=== PATIENT | male | born 1960 | race African-American/Black ===

== ENCOUNTER → 2017-09-15 | Outpatient (CLI) | payer BC ==
[~2017-09-15] MED LIST: CLONIDINE HCL0.3 MG PO; HUMALOG MI100 UNIT/1 SC; METOPROLOL SUCC50 M1 PO; NIFEDIPINE90 MG PO; PRAVASTATIN SOD10 MG PO
--- NOTE | ~2017-09-15 | EKG ---
[place], [place] ELECTROCARDIOGRAM REPORT NAME: AAYUSH WELCH UNIT #: [id number] ROOM: DOCTOR: AUGUSTIN MARTÍNEZ MD BIRTHDATE: [birth year] DOS: 09/15/2017 RATE AND RHYTHM: Normal sinus rhythm at 76 beats per minute. VA interval 187 milliseconds, QRS duration 74 milliseconds, corrected QT interval 404 milliseconds, QRS axis 28. IMPRESSION: 1. Normal sinus rhythm. 2. Nonspecific T-wave abnormalities noted in leads V5 and V6. 3. No old EKG to compare with. 4. This is abnormal EKG. AUGUSTIN MARTÍNEZ MD CM:EKGRPT:ELECTROCARDIOGRAM REPORT [id number] AUGUSTIN MARTÍNEZ MD
[2017-09-15 10:45] LABS: CREATININE 2.86 mg/dL (0.70-1.30)
== END | disposition home or self-care (01) ==
LOC: RESCLI 01:24
PROVIDERS: Internal Medicine
DX: Z01.818 Encounter for other preprocedural examination (principal); E11.610 Type 2 diabetes mellitus with diabetic neuropathic arthropathy; E78.5 Hyperlipidemia, unspecified; I10 Essential (primary) hypertension; Z79.4 Long term (current) use of insulin

== ENCOUNTER → 2017-10-19 | Outpatient (CLI) | payer BC ==
[~2017-10-19] MED LIST changes: +DOXYCYCLINE100 M3 PO; +ULTRAM50 MG PO; +VITAMIN D-32000 UNIT PO; +XARE15TA PO
== END | disposition home or self-care (01) ==
LOC: SDC 08:50 → LAB 08:50
DX: E11.610 Type 2 diabetes mellitus with diabetic neuropathic arthropathy (principal); S93.05XA Dislocation of left ankle joint, initial encounter; S93.315A Dislocation of tarsal joint of left foot, initial encounter; L89.523 Pressure ulcer of left ankle, stage 3; I70.203 Unspecified atherosclerosis of native arteries of extremities, bilateral legs; I47.1 Supraventricular tachycardia; X58.XXXA Exposure to other specified factors, initial encounter; Y93.89 Activity, other specified; Y92.89 Other specified places as the place of occurrence of the external cause; Y99.8 Other external cause status

== ENCOUNTER → 2017-10-26 | Outpatient (CLI) | payer BC | END | disposition home or self-care (01) | LOC: RESCLI 02:31 | DX: Z01.818 Encounter for other preprocedural examination (principal); I10 Essential (primary) hypertension; E11.610 Type 2 diabetes mellitus with diabetic neuropathic arthropathy; E78.5 Hyperlipidemia, unspecified; Z79.4 Long term (current) use of insulin ==

== ENCOUNTER → 2017-10-27 | Day surgery (SDC) | payer BC ==
[~2017-10-27] VITALS: Ht 185.4 cm; Wt 72.6 kg
--- NOTE | ~2017-10-27 | WRIGHTHP ---
[place], [place] PATIENT HISTORY AND PHYSICAL EXAM NAME: AAYUSH WELCH [facility] #: [id number] UNIT #: [id number] ROOM: DOCTOR: DEREK ENG DPM BIRTHDATE: [birth year] DOS: 10/27/2017 SURGEON: Dr. Derek Eng. SUMMER BABYSITTER: Nohemi Smith, PGY2 PREOPERATIVE DIAGNOSES: 1. Tarsal tunnel syndrome. 2. Ankle joint equinus. 3. Osteomyelitis of the fibula. 4. Infection of soft tissue. 5. Possible osteomyelitis of tibia. 6. Possible osteomyelitis of the calcaneus. 7. Fracture dislocation tibiotalar joint, fracture dislocation of subtalar joint and fracture dislocation of the tarsal joint. 8. Large complex wound measuring 3 cm diameter distal fibula. 9. Significant left lower extremity deformity. POSTOPERATIVE DIAGNOSES: 1. Tarsal tunnel syndrome. 2. Ankle joint equinus. 3. Osteomyelitis of the fibula. 4. Infection of soft tissue. 5. Possible osteomyelitis of tibia. 6. Possible osteomyelitis of the calcaneus. 7. Fracture dislocation tibiotalar joint, fracture dislocation of subtalar joint and fracture dislocation of the tarsal joint. 8. Large complex wound measuring 3 cm diameter distal fibula. 9. Significant left lower extremity deformity. PROCEDURES: 1. Tarsal tunnel decompression. 2. Achilles tendon lengthening. 3. Fibular osteotomy. 4. Debridement of the fibula. 5. Bony debridement of the tibia. 6. Right debridement of calcaneus. 7. Reduction of the tibiotalar joint ankle, reduction of the subtalar calcaneal subtalar joint and the mid tarsal joint, all left. 8. Complex closure with mobilization of tissue of the distal wound. 9. Application of a multilevel external fixator on the left lower extremity. PROCEDURE IN DETAIL: The patient was seen in preop holding, informed consent was performed. The patient was seen as well as his family member. Appropriate site marking was performed and the patient and family member concurred. He was brought into OR and placed on well-padded OR table where a generous was achieved. Prior to the preop, the patient had a popliteal block performed. Once anesthesia was achieved, he was placed on a well-padded OR table and general anesthesia achieved. A mid-thigh tourniquet was applied to his left lower extremity. The left foot and leg were prepped and draped in a sterile [place], [place] PATIENT HISTORY AND PHYSICAL EXAM [facility]: [id number] UNIT #: [id number] ROOM: DOCTOR: DEREK ENG DPM BIRTHDATE: [birth year] fashion. At this point in time, appropriate timeout was performed with operating room concurred. PROCEDURE #1. TARSAL TUNNEL DECOMPRESSION: After a tourniquet was inflated, attention was directed to medial aspect of the left tarsal tunnel. At this point in time, the incision was made over the tarsal tunnel. It was deepened in same plane using sharp scissors, avoid neurovascular structures, carried deep down to the ____ ligament where the tarsal tunnel was identified and noted to be severely entrapped. From the severe fibrosis and scar tissue down to the neurovascular structures along the medial calcaneus in the navicular, in the talus, which were significantly medially displaced and tracked. Once all soft tissues were free, neurovascular bundles were freed, the area was irrigated with copious amounts of saline and at this time, the deep tissue was closed using 0 Vicryl and skin was closed using 2-0 nylon. PROCEDURE #2: ACHILLES TENDON LENGTHENING: Next, entering posterior aspect of the right lower leg at this point in time, has severe equinus contracture was noted as well as Achilles tendon. At this time, using a 15 blade, a complete resection of the Achilles tendon was performed off the calcaneus through stab incision, releasing the calcaneus, increasing the Achilles tendon allowing the foot to come out of equinus and slightly released out of varus deformity. The area was flushed with copious amounts of saline and skin was closed with 2-0 nylon. PROCEDURE #3: At this time, there was improvement of immobilization, however is in a fixed position due to significant deformity of the medial displacement of the osseous structures. Attention was directed to the lateral aspect of fibula where approximately 6-cm incision was made. An oblique incision was made around the ulceration, which measured approximately 3 cm in diameter. This was carried down to bone and at this time, the distal aspect of fibula was performed. At this point in time, approximately 3-cm portion of the fibula was identified and an osteotomy was made of the fibula. PROCEDURE #4: BONY DEBRIDEMENT OF THE FIBULA. Next, with the distal fibula exposed, there was necrotic bone identified and a rongeur was used and a rongeur took down the bone, excised the bone and resected it and bone was sent for pathology. Bone was sent for Gram stain, aerobic, anaerobic, fungal, acid fast, cultures and Gram stain of the left distal fibula. At this point in time, with fibular osteotomy already performed, the distal portion of the fibula was resected. At this point in time, the area was flushed with copious amounts of sterile saline. Now with the diseased portion of the fibula gone, another bone debridement was performed at the fibula, but was determined to be post-debridement and cleaned bone and bone from the fibula was then debrided again and sent for Gram stain, aerobic, anaerobic, fungal, acid fast as well as cultures and biopsies of the distal fibula. At this point in time, attempted reduction was performed, although the foot mobilized more laterally compared to preoperatively and at this time, still cannot be completely reduced. So at this time, attention was directed to the medial aspect of the foot where a medial incision was made. This was made over the talus, which was displaced medial to the tibia and medial to the navicular. The incision was carried deep down to [place], [place] PATIENT HISTORY AND PHYSICAL EXAM NAME: AAYUSH WELCH UNIT #: [id number] ROOM: DOCTOR: DEREK ENG DPM BIRTHDATE: [birth year] the bone and at this time, this is being released by fibrotic tissue, posterior tibial tendon, flexor tendon and neurovascular structures were identified. At this time, bone was resected from the talus. At this point in time, bone was sent for Gram stain, aerobic, anaerobic, fungal, acid fast as well as a biopsy and also Gram stain. After significant amount of bone reduced, again more mobilization occurred, but this could not be completely mobilized. More bone resected and after irrigation, clean margins of talus bone then were resected using a rongeur and again aerobic, anaerobic, fungal, acid fast and cultures and biopsies were again sent off for clean bone resection off of the talus. No gross deformity bone noted. Necrosis of bone noted. The area was flushed with copious amounts of saline, deep tissues with 0 Vicryl, skin with 2-0 nylon. Next, attention was directed to the plantar aspect of the tibia and bone was resected using osteotomes, mallets, curettes and rongeurs and bone was sent for Gram stain, aerobic, anaerobic, fungal, acid fast of distal tibia and a Gram stain and biopsy. Once this was done, the area was flushed with copious amounts of sterile saline. Then, a new sample of bone was deemed clean, post-debridement of tibia was sent for Gram stain, aerobic, anaerobic, fungal, acid fast as well as cultures and biopsies of the tibia as well for clean margins. PROCEDURE #5: Bone was debrided from the calcaneus. Rongeur was used and bone was sent for Gram stain, aerobic, anaerobic, fungal and acid fast of the lateral aspect of the calcaneus and sent for biopsy to rule out any type of osteomyelitis or infection of the lateral aspect of the calcaneus. Once this bone was resected and these cultures and biopsies were done, now we were able to reduce the tibiotalar joint, the talar calcaneal metatarsal joint and get the ____ the leg. This reduction was temporarily held in place and the deep tissues were closed using 0 Vicryl. The skin was closed using 2-0 nylon. The flaps of the anterior and posterior wounds were undermined prior to closure. PROCEDURE #6: COMPLEX CLOSURE OF THE WOUND WITH THE TISSUE BEING MOBILIZED ANTERIORLY AND POSTERIORLY. The excision of the ____ wound was excised and removed in total previously. There sutures were mobilized and a large dog ear had to be taken out due to excessive tissue from shortening of the area. These tissues were mobilized to the neutral position and these were closed primarily with complex closure using 0 Vicryl and 2-0 nylon. PROCEDURE #7: APPLICATION OF A MULTILEVEL EXTERNAL FIXATOR WITH THE FOOT IN THE NEUTRAL POSITION AND GOOD ANATOMIC ALIGNMENT. Two half pins were placed in the tibia done under fluoroscopy, 2 half pins were placed in the calcaneus from posterior to anterior and 2 half pins were placed in the mid foot, one from the medial cuneiform the lateral tarsals and from the cuboid to the medial tarsals. At this point in time, with the foot and ankle and subtalar joint, midtarsal joint held in neutral position. The multilevel external fixator was connected to a port clamp type technique reducing in the holding anatomic alignment out of equinus in the sagittal and frontal plane as well as transverse plane into neutral position. The tourniquet was dropped at this point in time prior to 2 hours. Good cap refill time was noted to return to the ends of all digits. Also, we used to close suction drain in lateral aspect of the wound, which was inserted prior to closure. Good cap refill time was noted to all digits of the [place], [place] PATIENT HISTORY AND PHYSICAL EXAM NAME: AAYUSH EWLCH UNIT #: [id number] ROOM: DOCTOR: DEREK ENG DPM BIRTHDATE: [birth year] left foot. At this time, Betadine-soaked Adaptic, 4 x 4, Salima ____ was applied. The tourniquet was removed. The patient tolerated the procedure and ____ intact. His foot and ankle and lower extremity were in much improved anatomic alignment without stress on the tissues as this wound was closed primarily DEREK ENG DPM CM:HISPHYS:PATIENT HISTORY AND PHYSICAL EXAMINATION [id number] DEREK ENG DPM 10/28/17 1348 DAPHNIE HENSLEY MIS.R
--- NOTE | ~2017-10-27 | WRIGHTHP ---
[place], [place] PATIENT HISTORY AND PHYSICAL EXAM NAME: AAYUSH WELCH UNIT #: [id number] ROOM: DOCTOR: DEREK ENG DPM BIRTHDATE: [birth year] DOS: 10/27/2017 LOWER EXTREMITY PHYSICAL EXAMINATION VASCULAR: He has palpable pedal pulse, 2/4 DP and PT bilaterally with good cap refill time. NEUROLOGICAL: He has complete loss of protective sensation secondary to diabetic peripheral neuropathy. Tinel sign consistent with a tarsal tunnel syndrome. MUSCULOSKELETAL: He has a fixed semirigid contracture nearly like a club foot, cannot alan the foot to a neutral position or even close to neutral position. There is instability at the mid-tarsal joint. He has a significant equinus component and a very tight nearly displaced Achilles tendon on the right. DERMATOLOGICAL: He has open wound distal fibula approximately 3 cm in diameter which has white scarring tissue and proud flesh also identified some necrotic tissue. No gross cardinal signs of infection, but has been on IV antibiotics for 6 weeks. ORTHOPEDIC: Fracture dislocation of the tibiotalar joint, subtalar joint, midtarsal joint, significant varus deformity, club foot deformity, joint contracture of the tibiotalar calcaneal in the sagittal plane and medially and history of chronic osteomyelitis, distal lateral fibula. DEREK ENG DPM CM:HISPHYS:PATIENT HISTORY AND PHYSICAL EXAMINATION [id number] DEREK ENG DPM 11/05/17 1237 interface
--- NOTE | ~2017-10-27 | WRIGHTHP ---
[place], [place] PATIENT HISTORY AND PHYSICAL EXAM NAME: AAYUSH WELCH UNIT #: [id number] ROOM: DOCTOR: DEREK ENG DPM BIRTHDATE: [birth year] DOS: 10/27/2017 INDICATION NOTE: The patient is a long-standing diabetic who is referred to me from outside physician for gross deformity of his left lower extremity. He presents with a varus deformity that is semirigid on his left and his foot is dislocated medially to the long axis of the tibia and in an inverted position likely diabetic peripheral neuropathy. With this, he has had a large ulcer on the distal fibula as that is the weightbearing area that measures approximately 3 cm in diameter. He has been diagnosed of osteomyelitis and had a course of IV antibiotics from an ID doctor from [facility]. Recently came off antibiotics. He exhibits no current signs of infection, drain, malodor, undermining or tunneling of the wound. There is no acute exacerbation of infection, but his imaging does suggest consistent with chronic osteomyelitis and also he has an open wound of his left distal fibula area. With this in mind, he was set up for surgery today on 10/27/2017 at the [facility] for incision and drainage, bone debridement, reduction of deformity, Achilles tendon lengthening and application of multilevel external fixator. Additionally, need for a tarsal tunnel decompression to prevent strangulation of the neurovascular bundles on the medial aspect of his foot and ankle secondary to longstanding gross deformity. He understood the consent. He understands the risk of limb loss, wounds, continued infection, worsening of it, neurovascular injury, DVT and PE. He understands all these risks and signed consent in our office, signed the consent today. He agreed with appropriate site marking, he agreed with the perioperative management and perioperative course, he is to be nonweightbearing, DVT prophylactics, antibiotics as well as possible wound care as needed. DEREK ENG DPM CM:HISPHYS:PATIENT HISTORY AND PHYSICAL EXAMINATION [id number] DEREK ENG DPM 11/05/17 1233 interface
[2017-10-27 10:04] VITALS: BP 195/100
[2017-10-27 13:18] VITALS: BP 171/90
[2017-10-27 13:33] VITALS: BP 171/92
[2017-10-27 13:48] VITALS: BP 153/81
[2017-10-27 14:03] VITALS: BP 152/81
[2017-10-27 14:18] VITALS: BP 160/85
[2017-12-23 10:08] LABS: ORGANISM ID, MOLD Final report (.); RESULT 1 Final Identification (.)
[2017-12-24 08:15] LABS: RESULT 1 Final Identification
== END | disposition home or self-care (01) ==
LOC: SDC 09-15 11:00
PROVIDERS: Podiatrist
DX: M86.162 Other acute osteomyelitis, left tibia and fibula (principal); S93.05XA Dislocation of left ankle joint, initial encounter; S93.315A Dislocation of tarsal joint of left foot, initial encounter; M21.6X2 Other acquired deformities of left foot; M86.672 Other chronic osteomyelitis, left ankle and foot; M86.172 Other acute osteomyelitis, left ankle and foot; M79.89 Other specified soft tissue disorders; G57.52 Tarsal tunnel syndrome, left lower limb; I10 Essential (primary) hypertension; E78.5 Hyperlipidemia, unspecified; E11.610 Type 2 diabetes mellitus with diabetic neuropathic arthropathy; Z98.890 Other specified postprocedural states; Z79.899 Other long term (current) drug therapy; Z79.4 Long term (current) use of insulin; X58.XXXA Exposure to other specified factors, initial encounter; Y93.89 Activity, other specified; Y92.89 Other specified places as the place of occurrence of the external cause; Y99.8 Other external cause status; Z53.31 Laparoscopic surgical procedure converted to open procedure

== ENCOUNTER 2018-02-16 04:33 | Inpatient (IN) | payer BC ==
[2018-02-08 09:45] VITALS: BP 132/78
[~2018-02-16] VITALS: Ht 185.4 cm; Wt 72.6 kg
[2018-02-16] VITALS (12 sets, daily range): BP systolic 114–202; BP diastolic 55–110
--- NOTE | ~2018-02-16 | O ---
[place], [place] OPERATIVE NOTE [id number] UN[facility] #: [id number] ROOM: 522 DOCTOR: DEREK ENG DPM BIRTHDATE: [birth year] DOS: 02/16/2018 OPERATIVE REPORT SURGEON: Derek Eng DPM ASSISTANTS: 1. Dr. Lawrence Cassidy. 2. Dr. Chris Ray. PREOPERATIVE DIAGNOSES: 1. Osteomyelitis, left calcaneus. 2. 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 3. Charcot arthropathy of the left. POSTOPERATIVE DIAGNOSES: 1. Osteomyelitis, left calcaneus. 2. 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 3. Charcot arthropathy of the left. PROCEDURES: 1. Bone debridement and bone biopsy performed of the left calcaneus for the osteomyelitis. 2. Tibiotalar fusion. 3. Subtalar joint fusion. 4. Harvesting of large fibular graft, approximately 12 cm in length. PROCEDURE #1: INCISION AND DRAINAGE AND BONE BIOPSY AND BONE DEBRIDEMENT OF LEFT CALCANEUS. The patient was seen in the preoperative holding area and appropriate site marking was performed. He and his family concurred. He agreed, understanding pros, cons, risks, benefits. He also needs a site marker. He was brought in the OR and placed on well-padded OR table where anesthesia was achieved. Once his anesthesia was achieved, he was flipped to a prone position. His left foot and leg were prepped and draped in sterile fashion. Hemostasis was accomplished via mid thigh tourniquet. At this time, attention was directed to the posterior aspect of his left lower leg where an incision was made. The incision was deepened in the same plane using sharp and blunt dissection, avoiding neurovascular structures, carried down to the deep tissue. At this point in time, the calcaneus was very suspicious for osteomyelitis and this was debrided extensively with rongeurs, osteotomes, mallets and curettes and this bone was sent off for Gram stain, aerobic, anaerobic, fungal acid fast as well as a biopsy of left calcaneus. PROCEDURE #2: TIBIOTALAR FUSION. Attention was directed to the tibiotalar calcaneal joint. This bone was extensively debrided removing the distal portion of the tibia. This bone was resected and this was prepared for fusion with rongeurs, osteotomes, mallets, [place], [place] OPERATIVE NOTE NAME: AAYUSH WELCH UNIT #: [id number] ROOM: 522 DOCTOR: DEREK ENG DPM BIRTHDATE: [birth year] curettes, and drills preparing the tibia and then also curettes, osteotomes, mallets, rongeurs were used to prepare the calcaneus for fusion as well. Next, attention was directed to the lateral aspect of the wound approximately 10 cm up proximal. PROCEDURE #3: HARVESTING OF LOWER EXTREMITY GRAFT. At this time, all the soft tissues were taken off the fibula and the distal aspect of the fibula and this bone was harvested for large fibular graft approximately 10 cm. The patient was taken on the back table and this was measured to prepare for tibiotalar calcaneal fusion measuring for cortical struts with the anterior portion of the bone debrided with drills, osteotomes, mallets, rongeurs. PROCEDURE #4: Talocalcaneal joint, allogenic bone chips as well as patient's autologous bone crunched up very well, was packed very, very tightly into the tibia and calcaneus preparing for fusion. This bone was packed very, very firmly, tightly and at this time the cortical cancellous struts were inserted posteriorly creating a subtalar joint fusion as well. Next, two 7.0 fully threaded 100 mm in length white, medical screws were inserted from the inferior calcaneus to the distal aspect of the tibia to catch purchase fully threaded. Next, with more bone graft packed in there, autogenous bone graft as well as some allogenic bone grafts were packed very tightly. A posterior plate was applied. Combination of locking and nonlocking screws were applied posteriorly. At 2 hours, the tourniquet was dropped and the foot and ankle was noted to be in good anatomic position via x-ray and clinical evaluation. At this point in time, hemostasis was well maintained and a large drain was inserted into the area of the lateral aspect of the tibiotalar area. Deep tissues were closed using 0 and 1 Vicryl and 2-0 nylon. Surgical wounds were dressed with Betadine-soaked Adaptic, 4 x 4s, Salima in a sterile compressive fashion. The tourniquet had been released. Compressive bandages were applied. He tolerated the procedure and anesthesia well, left the OR with vital signs stable and vascular status intact. [place], [place] OPERATIVE NOTE NAME: AAYUSH WELCH UNIT #: [id number] ROOM: 2 DOCTOR: DEREK ENG DPM BIRTHDATE: [birth year] DEREK ENG DPM CM:OPRECORD:OPERATIVE NOTE 1338 [id number] DEREK ENG DPM 04/06/18 0802 interface
--- NOTE | ~2018-02-16 | EKG ---
[place], [place] ELECTROCARDIOGRAM REPORT NAME: AAYUSH WELCH UNIT #: [id number] ROOM: 516 DOCTOR: DAISY DRAFT REPORT BIRTHDATE: [birth year] [facility] Test Date: 2018-02-17 Test Time: 22:04:29 Pat Name: AAYUSH WELCH Department: Room: 51 1 Gender: M Cottage Attendant: SS RESP : 1960 Requested By: STANLEY RYAN Order Number: [id number] Reading MD: Wilfred Craven MD Measurements Intervals [place] Rate: 88 P: 60 VA: 167 QRS: -16 QRSD: 90 T: 88 QT: 361 QTc: 437 Interpretive Statements Sinus rhythm Borderline left axis deviation Low voltage, extremity leads RSR' in V1 or V2, probably normal variant Nonspecific T abnormalities, lateral leads Baseline wander in lead(s) I,II,aVR,aVF Compared to ECG 02/08/2018 10:42:03 RSR' in V1 or V2 now present T-wave abnormality now present Electronically Signed On 02-21-2018 13:55:50 PDT by Wilfred Craven MD CM:EKGRPT:ELECTROCARDIOGRAM REPORT [id number] STANLEY GANDHI DRAFT REPORT STANLEY RYAN DO
--- NOTE | ~2018-02-16 | WRIGHTHP ---
[place], [place] PATIENT HISTORY AND PHYSICAL EXAM NAME: AAYUSH WELCH UNIT #: [id number] ROOM: 516 DOCTOR: DEREK ENG DPM BIRTHDATE: [birth year] DOS: 02/16/2018 LOWER EXTREMITY PHYSICAL EXAMINATION: VASCULAR: He has had noninvasive studies, which demonstrated good adequate perfusion of his left lower extremity. NEUROLOGICAL: He has decreased epicritic sensation secondary to diabetic peripheral neuropathy. MUSCULOSKELETAL: He has a grossly unstable left ankle. ORTHOPEDIC EXAM: On left, consistent with long-term osteomyelitis of his left foot and ankle and lower leg with significant deformity. DEREK ENG DPM CM:HISPHYS:PATIENT HISTORY AND PHYSICAL EXAMINATION 1338 1511 DEREK ENG DPM 02/16/18 1600 interface
--- NOTE | ~2018-02-16 | PR ---
[place], [place] PROGRESS NOTE NAME: AAYUSH WELCH UNIT #: [id number] ROOM: 522 DOCTOR: JYOTSNA DAVISAUGUST BIRTHDATE: [birth year] DOS: 02/27/2018 SUBJECTIVE: The patient is a pleasant 57-year-old -[place] male who is being followed for a left foot osteomyelitis. Pathology showed chronic osteo. His cultures have grown Pseudomonas. He remains on Merrem IV. He is status post a fusion. He is tolerating the antibiotics. Denies fevers, chills, nausea, vomiting or diarrhea. No rash or itch. No cough or shortness of breath. No fevers or shaking chills. Further review of systems is unremarkable. LABORATORY DATA: From yesterday showed WBCs s 8.6, platelets 255, BUN 26, creatinine 1.37. OBJECTIVE: VITAL SIGNS: Temperature 98.2, pulse 80, respirations 18, BP 154/86. GENERAL: A 57-year-old -[place] male in no acute distress. HEENT: Normocephalic, no thrush. LUNGS: Clear to auscultation bilaterally. Respirations even and unlabored. HEART: Regular rhythm. No murmur appreciated. ABDOMEN: Soft, nondistended. EXTREMITIES: No edema. Left lower extremity casted. SKIN: Warm, dry, free of rashes, midline dressed. ASSESSMENT: Left foot chronic osteomyelitis. He is status post a fusion, cultures with pseudomonas. PLAN: To continue the Merrem until 03/17/2018. KAT GOYAL CNP Marci Victor MD CM:PNJCARLOS 1523 1535 KAT JYOTSNA DAVIS 02/27/18 1718 interface
--- NOTE | ~2018-02-16 | PR ---
[place], [place] PROGRESS NOTE NAME: AAYUSH WELCH UNIT #: [id number] ROOM: 522 DOCTOR: SISI HARRISON,CONSTANZA BIRTHDATE: [birth year] DOS: 02/27/2018 This is attestation to the progress note made by nurse practitioner, Jia Moreno. I agree with the assessment and plan. I reviewed the labs and imaging and made the necessary changes in the note. Marci Laird MD CM:PNTRANS 17 30 CONSTANZA LAIRD MD 03/06/182130 interface
--- NOTE | ~2018-02-16 | WRIGHTHP ---
[place], [place] PATIENT HISTORY AND PHYSICAL EXAM [id number] UNIT #: [id number] ROOM: 516 DOCTOR: DEREK ENG DPM BIRTHDATE: [birth year] DOS: 02/16/2018 INDICATIONS: The patient is a 57-year-old -[place] male who is seen for chronic osteomyelitis of his left ankle. He had a deformity. He has had debridement and external fixator applied. At this time, he has consented for surgery for a tibiotalar and calcaneal fusion and harvesting of the lower extremity graft. He is aware of the pros, cons, risks and benefits. He was noted to have high risk for amputation. He understands that he has significant deformity. He understands his problem is very complex in nature. He agreed to surgery and agreed with perioperative management including anticoagulation therapy. He understands the pros, cons, risks, benefits of that. With this in mind, he has consented for surgery and await for TTC fusion of his left lower extremity harvesting of the graft. Appropriate site marking was performed and he concurred as well as his family on the left lower extremity. DEREK ENG DPM CM:HISPHYS:PATIENT HISTORY AND PHYSICAL EXAMINATION 1338 1509 DEREK ENG DPM 02/16/18 1558 interface
[~2018-02-16 04:33] MED LIST changes: +AMOX CLAV PO; +FLUONAZOLE200 M1 PO; +XARELTO10 MG PO
[2018-02-16 07:34] LABS: BASO # 0.1 10*3/uL (0.0-0.1); BASO % 0.7 % (0.0-1.0); EOS # 0.1 10*3/uL (0.0-0.4); EOS % 1.7 % (1.0-4.0); HEMATOCRIT 29.3 % (42.0-52.0); HEMOGLOBIN 9.7 g/dl (14.0-18.0); LYMPH # 1.7 10*3/uL (1.3-4.4); LYMPH % 24.2 % (27.0-41.0); MEAN CELL VOLUME 98.7 fl (80.0-94.0); MEAN CORPUSCULAR HGB 32.7 pg (27.0-31.0); MEAN CORPUSCULAR HGB CONC 33.1 g/dl (33.0-37.0); MEAN PLATELET VOLUME 10.8 fl (9.6-12.3); MONO # 0.6 10*3/uL (0.1-1.0); MONO % 8.6 % (3.0-9.0); NEUT # 4.5 10*3/uL (2.3-7.9); NEUT % 64.5 % (47.0-73.0); PLATELET COUNT AUTOMATED 180 10*3/uL (130-400); RED BLOOD COUNT 2.97 10*6/uL (4.50-5.90); RED CELL DISTRI WIDTH 14.6 % (0-14.5)
[2018-02-16 07:42] LABS: ACT PARTIAL THROMBO TIME 24.8 SECONDS (20.8-31.5); INTERNATIONAL NORM RATIO 1.1 (2.0-3.5)
[2018-02-16 18:00] LABS: ALBUMIN 2.8 gm/dl (3.1-4.5); CREATININE 1.93 mg/dL (0.70-1.30); POTASSIUM 4.5 mmol/L (3.5-5.1); TOTAL PROTEIN 6.7 gm/dL (6.4-8.2)
[2018-02-17] VITALS (15 sets, daily range): BP systolic 101–148; BP diastolic 55–71
[2018-02-17 07:00] LABS: BASO % 0.2 % (0.0-1.0); EOS % 0.1 % (1.0-4.0); LYMPH # 1.2 10*3/uL (1.3-4.4); LYMPH % 9.6 % (27.0-41.0); MEAN CORPUSCULAR HGB 32.9 pg (27.0-31.0); MEAN CORPUSCULAR HGB CONC 32.9 g/dl (33.0-37.0); MONO # 1.4 10*3/uL (0.1-1.0); MONO % 10.6 % (3.0-9.0); NEUT # 10.2 10*3/uL (2.3-7.9); RED BLOOD COUNT 1.61 10*6/uL (4.50-5.90); RED CELL DISTRI WIDTH 14.8 % (0-14.5); WHITE BLOOD COUNT 12.9 10*3/uL (4.8-10.8)
[2018-02-17 07:03] LABS: ACT PARTIAL THROMBO TIME 28.3 SECONDS (20.8-31.5); INTERNATIONAL NORM RATIO 1.2 (2.0-3.5)
[2018-02-17 07:09] LABS: ALBUMIN 2.2 gm/dl (3.1-4.5); CREATININE 2.01 mg/dL (0.70-1.30); FREE T4 0.78 ng/dl (0.76-1.46); PHOSPHOROUS 3.2 mg/dL (2.5-4.9); POTASSIUM 4.5 mmol/L (3.5-5.1); TOTAL PROTEIN 5.8 gm/dL (6.4-8.2)
[2018-02-17 07:14] LABS: THYROID STIM HORMONE (HS) 0.845 uIU/ml (0.358-4.75)
[2018-02-17 07:22] LABS: HEMOGLOBIN 5.3 g/dl (14.0-18.0)
[2018-02-17 07:23] LABS: HEMATOCRIT 16.1 % (42.0-52.0); PLATELET COUNT AUTOMATED 115 10*3/uL (130-400)
[2018-02-17 08:05] LABS: VITAMIN D, 25-HYDROXY 33.8 ng/mL (30-100)
[2018-02-17 14:06] LABS: ACID FAST SPEC PROCESSING Tissue Grinding (.)
[2018-02-17 15:38] LABS: HEMATOCRIT 18.5 % (42.0-52.0); HEMOGLOBIN 6.1 g/dl (14.0-18.0); MEAN CELL VOLUME 98.4 fl (80.0-94.0); MEAN CORPUSCULAR HGB 32.4 pg (27.0-31.0); MEAN PLATELET VOLUME 11.1 fl (9.6-12.3); PLATELET COUNT AUTOMATED 103 10*3/uL (130-400); RED BLOOD COUNT 1.88 10*6/uL (4.50-5.90); RED CELL DISTRI WIDTH 16.5 % (0-14.5); WHITE BLOOD COUNT 13.5 10*3/uL (4.8-10.8)
[2018-02-17 15:58] LABS: BASOPHILS 1 % (0-1); PLATELET SUFFICIENCY LOW (NORMAL); ROULEAUX SLIGHT; TOTAL CELLS COUNTED 100 #CELLS
[2018-02-17 23:13] LABS: URINE BLOOD,POST TRANSFUSION 3+ (NEGATIVE)
[2018-02-17 23:14] LABS: URINE RBC,POST TRANSFUSION 41-50 rbc/hpf (0-2)
[2018-02-18] VITALS (10 sets, daily range): BP systolic 109–136; BP diastolic 60–72
[2018-02-18 04:18] LABS: CREATININE 1.97 mg/dL (0.70-1.30); POTASSIUM 4.1 mmol/L (3.5-5.1)
[2018-02-18 08:55] LABS: MEAN CELL VOLUME 98.8 fl (80.0-94.0); MEAN CORPUSCULAR HGB 32.7 pg (27.0-31.0); MEAN CORPUSCULAR HGB CONC 33.1 g/dl (33.0-37.0); MEAN PLATELET VOLUME 10.8 fl (9.6-12.3); PLATELET COUNT AUTOMATED 90 10*3/uL (130-400); RED BLOOD COUNT 1.71 10*6/uL (4.50-5.90); RED CELL DISTRI WIDTH 17.3 % (0-14.5); WHITE BLOOD COUNT 11.6 10*3/uL (4.8-10.8)
[2018-02-18 09:04] LABS: HEMATOCRIT 16.9 % (42.0-52.0); HEMOGLOBIN 5.6 g/dl (14.0-18.0)
[2018-02-18 09:11] LABS: CREATININE 1.91 mg/dL (0.70-1.30); POTASSIUM 3.9 mmol/L (3.5-5.1)
[2018-02-18 09:25] LABS: PLATELET SUFFICIENCY LOW (NORMAL); POLYCHROMASIA SLIGHT; TOTAL CELLS COUNTED 100 #CELLS
[2018-02-18 18:10] LABS: BASO % 0.3 % (0.0-1.0); EOS # 0.1 10*3/uL (0.0-0.4); HEMATOCRIT 22.1 % (42.0-52.0); HEMOGLOBIN 7.2 g/dl (14.0-18.0); LYMPH # 1.3 10*3/uL (1.3-4.4); LYMPH % 10.1 % (27.0-41.0); MEAN CELL VOLUME 96.5 fl (80.0-94.0); MEAN CORPUSCULAR HGB 31.4 pg (27.0-31.0); MEAN CORPUSCULAR HGB CONC 32.6 g/dl (33.0-37.0); MEAN PLATELET VOLUME 11.8 fl (9.6-12.3); NEUT # 10.3 10*3/uL (2.3-7.9); PLATELET COUNT AUTOMATED 98 10*3/uL (130-400); RED BLOOD COUNT 2.29 10*6/uL (4.50-5.90); RED CELL DISTRI WIDTH 17.6 % (0-14.5); WHITE BLOOD COUNT 12.9 10*3/uL (4.8-10.8)
[2018-02-19] VITALS (11 sets, daily range): BP systolic 112–150; BP diastolic 59–80
[2018-02-19 06:36] LABS: BASO % 0.2 % (0.0-1.0); EOS # 0.1 10*3/uL (0.0-0.4); EOS % 1.2 % (1.0-4.0); HEMATOCRIT 19.7 % (42.0-52.0); HEMOGLOBIN 6.4 g/dl (14.0-18.0); LYMPH # 1.2 10*3/uL (1.3-4.4); LYMPH % 10.9 % (27.0-41.0); MEAN CELL VOLUME 96.6 fl (80.0-94.0); MEAN CORPUSCULAR HGB 31.4 pg (27.0-31.0); MEAN CORPUSCULAR HGB CONC 32.5 g/dl (33.0-37.0); MEAN PLATELET VOLUME 12.4 fl (9.6-12.3); NEUT # 8.3 10*3/uL (2.3-7.9); NEUT % 78.1 % (47.0-73.0); PLATELET COUNT AUTOMATED 91 10*3/uL (130-400); RED BLOOD COUNT 2.04 10*6/uL (4.50-5.90); RED CELL DISTRI WIDTH 17.4 % (0-14.5); WHITE BLOOD COUNT 10.6 10*3/uL (4.8-10.8)
[2018-02-19 06:49] LABS: CREATININE 1.82 mg/dL (0.70-1.30); POTASSIUM 3.9 mmol/L (3.5-5.1)
[2018-02-19 07:07] LABS: ACID FAST SPEC PROCESSING Direct Inoculation (.)
[2018-02-19 07:07] LABS: ACID FAST SPEC PROCESSING Tissue Grinding (.)
[2018-02-20] VITALS: BP 110/64
[2018-02-20 04:00] VITALS: BP 160/86
[2018-02-20 07:08] LABS: BASO % 0.4 % (0.0-1.0); EOS # 0.2 10*3/uL (0.0-0.4); HEMATOCRIT 23.8 % (42.0-52.0); HEMOGLOBIN 7.9 g/dl (14.0-18.0); LYMPH # 1.3 10*3/uL (1.3-4.4); LYMPH % 15.1 % (27.0-41.0); MEAN CELL VOLUME 94.8 fl (80.0-94.0); MEAN CORPUSCULAR HGB 31.5 pg (27.0-31.0); MEAN CORPUSCULAR HGB CONC 33.2 g/dl (33.0-37.0); MEAN PLATELET VOLUME 12.1 fl (9.6-12.3); MONO # 0.6 10*3/uL (0.1-1.0); MONO % 7.1 % (3.0-9.0); NEUT # 6.4 10*3/uL (2.3-7.9); NEUT % 74.7 % (47.0-73.0); RED BLOOD COUNT 2.51 10*6/uL (4.50-5.90); WHITE BLOOD COUNT 8.5 10*3/uL (4.8-10.8)
[2018-02-20 07:12] LABS: PLATELET COUNT AUTOMATED 128 10*3/uL (130-400)
[2018-02-20 07:31] LABS: BUN 23 mg/dl (7-24); CHLORIDE 116 mmol/L (98-107); POTASSIUM 4.2 mmol/L (3.5-5.1); SODIUM 145 mmol/L (136-145)
[2018-02-20 07:33] LABS: CREATININE 1.46 mg/dL (0.70-1.30)
[2018-02-20 08:00] VITALS: BP 140/80
[2018-02-20 12:00] VITALS: BP 151/83
[2018-02-20 16:00] VITALS: BP 124/70
[2018-02-20 20:00] VITALS: BP 112/65
[2018-02-21] VITALS: BP 117/58
[2018-02-21 06:28] LABS: BASO % 0.4 % (0.0-1.0); EOS # 0.1 10*3/uL (0.0-0.4); EOS % 1.6 % (1.0-4.0); HEMATOCRIT 24.2 % (42.0-52.0); HEMOGLOBIN 7.9 g/dl (14.0-18.0); LYMPH # 1.2 10*3/uL (1.3-4.4); LYMPH % 16.6 % (27.0-41.0); MEAN CELL VOLUME 95.3 fl (80.0-94.0); MEAN CORPUSCULAR HGB 31.1 pg (27.0-31.0); MEAN CORPUSCULAR HGB CONC 32.6 g/dl (33.0-37.0); MEAN PLATELET VOLUME 11.4 fl (9.6-12.3); MONO # 0.6 10*3/uL (0.1-1.0); MONO % 7.8 % (3.0-9.0); NEUT # 5.5 10*3/uL (2.3-7.9); NEUT % 73.1 % (47.0-73.0); PLATELET COUNT AUTOMATED 141 10*3/uL (130-400); RED BLOOD COUNT 2.54 10*6/uL (4.50-5.90); RED CELL DISTRI WIDTH 16.4 % (0-14.5); WHITE BLOOD COUNT 7.5 10*3/uL (4.8-10.8)
[2018-02-21 06:34] LABS: BUN 21 mg/dl (7-24); CHLORIDE 115 mmol/L (98-107); CREATININE 1.38 mg/dL (0.70-1.30); POTASSIUM 4.5 mmol/L (3.5-5.1); SODIUM 145 mmol/L (136-145)
[2018-02-21 09:38] VITALS: BP 138/80
[2018-02-21 12:00] VITALS: BP 147/72
[2018-02-21 16:00] VITALS: BP 143/77
[2018-02-21 20:00] VITALS: BP 146/88
[2018-02-22] VITALS: BP 150/82
[2018-02-22 06:27] LABS: BUN 20 mg/dl (7-24); CHLORIDE 109 mmol/L (98-107); CREATININE 1.33 mg/dL (0.70-1.30); POTASSIUM 4.6 mmol/L (3.5-5.1); SODIUM 139 mmol/L (136-145)
[2018-02-22 06:32] LABS: BASO % 0.3 % (0.0-1.0); EOS # 0.1 10*3/uL (0.0-0.4); EOS % 1.7 % (1.0-4.0); HEMATOCRIT 25.4 % (42.0-52.0); HEMOGLOBIN 8.5 g/dl (14.0-18.0); LYMPH # 1.3 10*3/uL (1.3-4.4); MEAN CELL VOLUME 94.4 fl (80.0-94.0); MEAN CORPUSCULAR HGB 31.6 pg (27.0-31.0); MEAN CORPUSCULAR HGB CONC 33.5 g/dl (33.0-37.0); MEAN PLATELET VOLUME 11.9 fl (9.6-12.3); MONO # 0.6 10*3/uL (0.1-1.0); MONO % 7.3 % (3.0-9.0); NEUT # 5.8 10*3/uL (2.3-7.9); NEUT % 74.2 % (47.0-73.0); PLATELET COUNT AUTOMATED 169 10*3/uL (130-400); RED BLOOD COUNT 2.69 10*6/uL (4.50-5.90); RED CELL DISTRI WIDTH 15.8 % (0-14.5); WHITE BLOOD COUNT 7.8 10*3/uL (4.8-10.8)
[2018-02-22 08:00] VITALS: BP 152/78
[2018-02-22 12:00] VITALS: BP 163/91
[2018-02-22] MEDS ORDERED: MERREM IV1 GM IV (13:30)
[2018-02-22 16:00] VITALS: BP 138/82
[2018-02-22 20:00] VITALS: BP 143/75
[2018-02-22 22:00] VITALS: BP 143/75
[2018-02-23] VITALS: BP 139/73
[2018-02-23 08:00] VITALS: BP 159/83
[2018-02-23 08:06] LABS: BASO % 0.3 % (0.0-1.0); EOS # 0.1 10*3/uL (0.0-0.4); EOS % 1.3 % (1.0-4.0); HEMOGLOBIN 8.1 g/dl (14.0-18.0); LYMPH # 1.4 10*3/uL (1.3-4.4); LYMPH % 16.3 % (27.0-41.0); MEAN CELL VOLUME 95.2 fl (80.0-94.0); MEAN CORPUSCULAR HGB 32.1 pg (27.0-31.0); MEAN CORPUSCULAR HGB CONC 33.8 g/dl (33.0-37.0); MEAN PLATELET VOLUME 10.9 fl (9.6-12.3); MONO # 0.7 10*3/uL (0.1-1.0); MONO % 7.9 % (3.0-9.0); NEUT # 6.4 10*3/uL (2.3-7.9); NEUT % 73.6 % (47.0-73.0); PLATELET COUNT AUTOMATED 180 10*3/uL (130-400); RED BLOOD COUNT 2.52 10*6/uL (4.50-5.90); RED CELL DISTRI WIDTH 15.8 % (0-14.5); WHITE BLOOD COUNT 8.7 10*3/uL (4.8-10.8)
[2018-02-23 08:18] LABS: BUN 21 mg/dl (7-24); CHLORIDE 109 mmol/L (98-107); CREATININE 1.37 mg/dL (0.70-1.30); POTASSIUM 4.6 mmol/L (3.5-5.1); SODIUM 139 mmol/L (136-145)
[2018-02-23 12:00] VITALS: BP 158/74
[2018-02-23 16:00] VITALS: BP 153/72
[2018-02-23 20:00] VITALS: BP 155/76
[2018-02-24] VITALS: BP 150/72
[2018-02-24 07:08] LABS: BASO % 0.2 % (0.0-1.0); EOS # 0.1 10*3/uL (0.0-0.4); EOS % 1.6 % (1.0-4.0); HEMATOCRIT 23.7 % (42.0-52.0); HEMOGLOBIN 7.9 g/dl (14.0-18.0); LYMPH # 1.2 10*3/uL (1.3-4.4); MEAN CELL VOLUME 95.2 fl (80.0-94.0); MEAN CORPUSCULAR HGB 31.7 pg (27.0-31.0); MEAN CORPUSCULAR HGB CONC 33.3 g/dl (33.0-37.0); MEAN PLATELET VOLUME 10.4 fl (9.6-12.3); MONO # 0.6 10*3/uL (0.1-1.0); MONO % 7.2 % (3.0-9.0); NEUT % 77.6 % (47.0-73.0); PLATELET COUNT AUTOMATED 199 10*3/uL (130-400); RED BLOOD COUNT 2.49 10*6/uL (4.50-5.90); RED CELL DISTRI WIDTH 15.6 % (0-14.5)
[2018-02-24 07:39] LABS: BUN 22 mg/dl (7-24); CHLORIDE 108 mmol/L (98-107); POTASSIUM 4.6 mmol/L (3.5-5.1); SODIUM 141 mmol/L (136-145)
[2018-02-24 08:00] VITALS: BP 160/86
[2018-02-24 12:00] VITALS: BP 137/73
[2018-02-24 16:00] VITALS: BP 133/76
[2018-02-24 20:00] VITALS: BP 146/71
[2018-02-25] VITALS: BP 157/79
[2018-02-25 06:29] LABS: BASO % 0.2 % (0.0-1.0); EOS # 0.1 10*3/uL (0.0-0.4); EOS % 1.6 % (1.0-4.0); HEMATOCRIT 24.2 % (42.0-52.0); HEMOGLOBIN 7.8 g/dl (14.0-18.0); LYMPH # 1.4 10*3/uL (1.3-4.4); LYMPH % 16.6 % (27.0-41.0); MEAN CORPUSCULAR HGB CONC 32.2 g/dl (33.0-37.0); MEAN PLATELET VOLUME 9.9 fl (9.6-12.3); MONO # 0.8 10*3/uL (0.1-1.0); MONO % 8.9 % (3.0-9.0); NEUT # 6.2 10*3/uL (2.3-7.9); NEUT % 72.2 % (47.0-73.0); PLATELET COUNT AUTOMATED 215 10*3/uL (130-400); RED BLOOD COUNT 2.52 10*6/uL (4.50-5.90); WHITE BLOOD COUNT 8.6 10*3/uL (4.8-10.8)
[2018-02-25 06:43] LABS: BUN 22 mg/dl (7-24); CHLORIDE 106 mmol/L (98-107); CREATININE 1.35 mg/dL (0.70-1.30); POTASSIUM 4.5 mmol/L (3.5-5.1); SODIUM 140 mmol/L (136-145)
[2018-02-25 08:00] VITALS: BP 142/70; BP 160/74
[2018-02-25 12:00] VITALS: BP 160/80
[2018-02-25 16:00] VITALS: BP 133/78
[2018-02-25 20:00] VITALS: BP 145/79
[2018-02-26] VITALS: BP 152/81
[2018-02-26 06:29] LABS: BASO % 0.3 % (0.0-1.0); EOS # 0.1 10*3/uL (0.0-0.4); EOS % 1.6 % (1.0-4.0); HEMATOCRIT 23.9 % (42.0-52.0); HEMOGLOBIN 7.8 g/dl (14.0-18.0); LYMPH # 1.6 10*3/uL (1.3-4.4); LYMPH % 18.5 % (27.0-41.0); MEAN CELL VOLUME 95.2 fl (80.0-94.0); MEAN CORPUSCULAR HGB 31.1 pg (27.0-31.0); MEAN CORPUSCULAR HGB CONC 32.6 g/dl (33.0-37.0); MEAN PLATELET VOLUME 10.3 fl (9.6-12.3); MONO # 0.8 10*3/uL (0.1-1.0); MONO % 9.6 % (3.0-9.0); NEUT % 69.5 % (47.0-73.0); PLATELET COUNT AUTOMATED 255 10*3/uL (130-400); RED BLOOD COUNT 2.51 10*6/uL (4.50-5.90); RED CELL DISTRI WIDTH 14.9 % (0-14.5); WHITE BLOOD COUNT 8.6 10*3/uL (4.8-10.8)
[2018-02-26 07:05] LABS: BUN 26 mg/dl (7-24); CHLORIDE 106 mmol/L (98-107); CREATININE 1.37 mg/dL (0.70-1.30); POTASSIUM 4.5 mmol/L (3.5-5.1); SODIUM 141 mmol/L (136-145)
[2018-02-26 08:00] VITALS: BP 167/86
[2018-02-26 12:00] VITALS: BP 143/70
[2018-02-26 16:00] VITALS: BP 149/83
[2018-02-26 20:00] VITALS: BP 131/74
[2018-02-27] VITALS: BP 140/75
[2018-02-27 08:00] VITALS: BP 154/86
[2018-02-27 16:00] VITALS: BP 112/75
[2018-02-27 20:00] VITALS: BP 146/77
[2018-02-28] VITALS: BP 149/78
[2018-02-28 08:00] VITALS: BP 166/84
[2018-02-28 12:00] VITALS: BP 144/73
[2018-02-28 16:00] VITALS: BP 123/68
[2018-02-28 20:00] VITALS: BP 133/75
[2018-03-01] VITALS: BP 142/79
[2018-03-01 08:00] VITALS: BP 156/78
[2018-03-01 12:00] VITALS: BP 124/70
[2018-03-01 16:00] VITALS: BP 115/68
[2018-03-01 20:00] VITALS: BP 136/71
[2018-03-02] VITALS: BP 129/71
[2018-03-02 06:37] LABS: CREATININE 1.69 mg/dL (0.70-1.30)
[2018-03-02 08:00] VITALS: BP 160/84
[2018-03-02 13:34] VITALS: BP 122/68
[2018-03-02 16:00] VITALS: BP 118/61
[2018-03-02 18:00] VITALS: BP 118/61
[2018-03-02 20:00] VITALS: BP 156/83
[2018-03-03] VITALS: BP 160/87
[2018-03-03 08:00] VITALS: BP 158/80
[2018-03-03 11:34] LABS: BASO # 0.1 10*3/uL (0.0-0.1); BASO % 0.7 % (0.0-1.0); EOS # 0.1 10*3/uL (0.0-0.4); EOS % 1.6 % (1.0-4.0); HEMATOCRIT 26.4 % (42.0-52.0); HEMOGLOBIN 8.7 g/dl (14.0-18.0); LYMPH # 1.2 10*3/uL (1.3-4.4); LYMPH % 14.5 % (27.0-41.0); MEAN CORPUSCULAR HGB 31.6 pg (27.0-31.0); MEAN PLATELET VOLUME 9.8 fl (9.6-12.3); MONO # 0.6 10*3/uL (0.1-1.0); MONO % 7.3 % (3.0-9.0); NEUT # 6.1 10*3/uL (2.3-7.9); NEUT % 75.5 % (47.0-73.0); PLATELET COUNT AUTOMATED 350 10*3/uL (130-400); RED BLOOD COUNT 2.75 10*6/uL (4.50-5.90); RED CELL DISTRI WIDTH 14.6 % (0-14.5); WHITE BLOOD COUNT 8.1 10*3/uL (4.8-10.8)
[2018-03-03 11:47] LABS: ALBUMIN 2.6 gm/dl (3.1-4.5); CREATININE 1.62 mg/dL (0.70-1.30); POTASSIUM 4.9 mmol/L (3.5-5.1); TOTAL PROTEIN 7.6 gm/dL (6.4-8.2)
[2018-03-03 12:00] VITALS: BP 145/78
[2018-03-03 16:00] VITALS: BP 108/66
[2018-03-03 20:00] VITALS: BP 119/56
[2018-03-04] VITALS: BP 128/65
[2018-03-04 06:32] LABS: BASO % 0.5 % (0.0-1.0); EOS # 0.2 10*3/uL (0.0-0.4); EOS % 2.1 % (1.0-4.0); HEMATOCRIT 24.5 % (42.0-52.0); LYMPH # 1.5 10*3/uL (1.3-4.4); LYMPH % 19.7 % (27.0-41.0); MEAN CELL VOLUME 95.7 fl (80.0-94.0); MEAN CORPUSCULAR HGB 31.3 pg (27.0-31.0); MEAN CORPUSCULAR HGB CONC 32.7 g/dl (33.0-37.0); MEAN PLATELET VOLUME 9.9 fl (9.6-12.3); MONO # 0.8 10*3/uL (0.1-1.0); MONO % 10.2 % (3.0-9.0); NEUT # 5.2 10*3/uL (2.3-7.9); PLATELET COUNT AUTOMATED 314 10*3/uL (130-400); RED BLOOD COUNT 2.56 10*6/uL (4.50-5.90); RED CELL DISTRI WIDTH 14.5 % (0-14.5); WHITE BLOOD COUNT 7.7 10*3/uL (4.8-10.8)
[2018-03-04 07:05] LABS: ALBUMIN 2.3 gm/dl (3.1-4.5); CREATININE 1.59 mg/dL (0.70-1.30); POTASSIUM 5.2 mmol/L (3.5-5.1); TOTAL PROTEIN 7.2 gm/dL (6.4-8.2)
[2018-03-04 08:00] VITALS: BP 162/80
[2018-03-31 11:06] LABS: ACID FAST CULTURE Negative (.)
[2018-04-01 08:12] LABS: ACID FAST CULTURE Negative (.)
[2018-04-01 08:12] LABS: ACID FAST CULTURE Negative (.)
== END 2018-03-04 13:40 | DRG 853 ==
LOC: SDC 04:33 → 5E 14:59
PROVIDERS: Internal Medicine; Podiatrist; Student in an Organized Health Care Education/Training Program
PROC: 0SGJ04Z Fusion of Left Tarsal Joint with Internal Fixation Device, Open Approach (ICD-10-PCS; 2018-02-16)
PROC: 0J9R0ZZ Drainage of Left Foot Subcutaneous Tissue and Fascia, Open Approach (ICD-10-PCS; 2018-02-16)
PROC: 0QBM0ZZ Excision of Left Tarsal, Open Approach (ICD-10-PCS; 2018-02-16)
PROC: 0QBK0ZZ Excision of Left Fibula, Open Approach (ICD-10-PCS; 2018-02-16)
PROC: 30233N1 Transfusion of Nonautologous Red Blood Cells into Peripheral Vein, Percutaneous Approach (ICD-10-PCS; principal; 2018-02-17)
PROC: 05HY33Z Insertion of Infusion Device into Upper Vein, Percutaneous Approach (ICD-10-PCS; 2018-02-23)
DX: A41.9 Sepsis, unspecified organism (principal); E43 Unspecified severe protein-calorie malnutrition; N17.0 Acute kidney failure with tubular necrosis; G93.5 Compression of brain; M86.672 Other chronic osteomyelitis, left ankle and foot; E87.0 Hyperosmolality and hypernatremia; D62 Acute posthemorrhagic anemia; E11.610 Type 2 diabetes mellitus with diabetic neuropathic arthropathy; N18.3 Chronic kidney disease, stage 3 (moderate); E11.319 Type 2 diabetes mellitus with unspecified diabetic retinopathy without macular edema; E11.22 Type 2 diabetes mellitus with diabetic chronic kidney disease; E78.5 Hyperlipidemia, unspecified; I12.9 Hypertensive chronic kidney disease with stage 1 through stage 4 chronic kidney disease, or unspecified chronic kidney disease; D53.9 Nutritional anemia, unspecified; E11.42 Type 2 diabetes mellitus with diabetic polyneuropathy; B96.5 Pseudomonas (aeruginosa) (mallei) (pseudomallei) as the cause of diseases classified elsewhere; Z16.24 Resistance to multiple antibiotics; D72.810 Lymphocytopenia; E11.65 Type 2 diabetes mellitus with hyperglycemia; Z68.21 Body mass index [BMI] 21.0-21.9, adult; Z79.4 Long term (current) use of insulin; Z82.0 Family history of epilepsy and other diseases of the nervous system; Z83.3 Family history of diabetes mellitus; Z79.899 Other long term (current) drug therapy

== ENCOUNTER → 2018-10-06 | Outpatient (CLI) | payer BC ==
[~2018-10-06] MED LIST changes: +MERREM IV1 GM IV; +VANCOMYCIN1.25 GM/21 IV
--- NOTE | ~2018-10-06 | EKG ---
[place], [place] ELECTROCARDIOGRAM REPORT NAME: AAYUSH WELCH UNIT #: [id number] ROOM: DOCTOR: EPIPHANY DRAFT REPORT BIRTHDATE: [birth year] [facility] Test Date: 2018-10-06 Test Time: 15:37:37 Pat Name: AAYUSH WELCH Department: Room: Gender: Route Sales Driver: Misty Ramos : 1960 Requested By: DEREK ENG Order Number: [id number] Reading MD: Bora Moreno MD Measurements Intervals [place] Rate: 82 P: 71 AL: 170 QRS: 33 QRSD: 91 T: 52 QT: 380 QTc: 444 Interpretive Statements Sinus rhythm Atrial premature complex Minimal ST elevation, anterior leads Baseline wander in lead(s) V3,V4 Compared to ECG 02/17/2018 22:04:29 Atrial premature complex(es) now present ST (T wave) deviation now present T-wave abnormality no longer present Electronically Signed On 10-07-2018 9:12:44 PDT by Bora Moreno MD CM:EKGRPT:ELECTROCARDIOGRAM REPORT [id number] DEREK VILLA DRAFT REPORT DEREK ENG DPM
[2018-10-06 17:46] LABS: CREATININE 2.22 mg/dL (0.70-1.30)
== END | disposition home or self-care (01) ==
LOC: LAB 13:54
PROVIDERS: Podiatrist
DX: Z01.818 Encounter for other preprocedural examination (principal); M86.9 Osteomyelitis, unspecified; I10 Essential (primary) hypertension; E11.9 Type 2 diabetes mellitus without complications

== ENCOUNTER → 2018-12-21 | Outpatient (CLI) | payer BC | END | disposition home or self-care (01) | LOC: US 16:56 | DX: R60.9 Edema, unspecified (principal); M79.662 Pain in left lower leg ==

== ENCOUNTER → 2019-06-14 | Day surgery (SDC) | payer BC ==
[2019-06-12 13:17] LABS: BASO % 0.7 % (0.0-1.0); EOS # 0.1 10*3/uL (0.0-0.4); EOS % 1.8 % (1.0-4.0); LYMPH # 1.3 10*3/uL (1.3-4.4); LYMPH % 21.2 % (27.0-41.0); MEAN CELL VOLUME 99.6 fl (80.0-94.0); MEAN CORPUSCULAR HGB CONC 32.1 g/dl (33.0-37.0); MEAN PLATELET VOLUME 11.1 fl (9.6-12.3); MONO # 0.5 10*3/uL (0.1-1.0); MONO % 8.3 % (3.0-9.0); NEUT % 67.2 % (47.0-73.0); PLATELET COUNT AUTOMATED 189 10*3/uL (130-400); RED BLOOD COUNT 2.81 10*6/uL (4.50-5.90); RED CELL DISTRI WIDTH 12.9 % (0-14.5)
[2019-06-12 13:27] LABS: ACT PARTIAL THROMBO TIME 25.8 SECONDS (20.0-32.1)
[2019-06-12 13:33] LABS: CREATININE 2.69 mg/dL (0.70-1.30); POTASSIUM 4.8 mmol/L (3.5-5.1)
[~2019-06-14] VITALS: Ht 182.8 cm; Wt 72.6 kg
[~2019-06-14] MED LIST changes: +CIPRO500 MG PO; +TRAMADOL HCL50 MG PO
[2019-06-14 09:55] VITALS: BP 168/92
[2019-06-14 14:05] VITALS: BP 176/95
[2019-06-14 14:20] VITALS: BP 173/89
[2019-06-14 14:35] VITALS: BP 162/85
[2019-06-16 14:06] LABS: ACID FAST SPEC PROCESSING Tissue Grinding (.)
[2019-06-16 14:06] LABS: ACID FAST SPEC PROCESSING Tissue Grinding (.)
== END | disposition home or self-care (01) ==
LOC: SDC 06-12 12:42
PROVIDERS: Podiatrist
DX: M86.672 Other chronic osteomyelitis, left ankle and foot (principal); L97.522 Non-pressure chronic ulcer of other part of left foot with fat layer exposed; I12.9 Hypertensive chronic kidney disease with stage 1 through stage 4 chronic kidney disease, or unspecified chronic kidney disease; N18.9 Chronic kidney disease, unspecified; E11.22 Type 2 diabetes mellitus with diabetic chronic kidney disease; E11.40 Type 2 diabetes mellitus with diabetic neuropathy, unspecified; Z79.899 Other long term (current) drug therapy; Z98.890 Other specified postprocedural states; Z83.3 Family history of diabetes mellitus